=== PATIENT | male | born 1990 | race African-American/Black ===

== ENCOUNTER 2018-07-24 14:41 | Emergency (ER) | payer MEDICAID ==
[~2018-07-24] VITALS: Ht 182.9 cm; Wt 100.0 kg
[2018-07-24] MEDS ORDERED: KETOROLAC 30MG/ML VIAL IV STA (15:46)
[2018-07-24] MEDS ORDERED: SODIUM CHLORIDE 0.9% 1,000 ML IV ONE (15:46)
[2018-07-24] MEDS ORDERED: LEVETIRACETAM 1000MG/100ML 100 ML IV ONE (16:00)
[2018-07-24] MEDS ORDERED: LEVETIRACETAM 500MG TABLET PO ONE (17:15)
[2018-07-24] MEDS ORDERED: LEVETIRACETAM 500MG PREMIX 100 ML IV ONE (17:15)
[2018-07-24] MEDS ORDERED: IBUPROFEN 600MG TABLET PO ONE (17:45)
[2018-07-24 19:41] VITALS: BP 135/79
== END 2018-07-24 19:42 | disposition home or self-care (01) ==
LOC: EDBD 14:41 → ER 14:41
DX: R56.9 Unspecified convulsions (principal); I10 Essential (primary) hypertension
CPT/HCPCS: 96365; 96375; 99283; J1885; J1953; J7030

== ENCOUNTER 2018-10-14 11:13 | Emergency (ER) | payer MEDICAID ==
[~2018-10-14] VITALS: Ht 182.9 cm; Wt 100.0 kg
[2018-10-14] MEDS ORDERED: LORAZEPAM 2MG/ML CPJ ONE (14:01)
[2018-10-14] MEDS ORDERED: PHENYTOIN SODIUM EXTENDED 100MG CAPSULE PO ONE (15:00)
[2018-10-14] MEDS ORDERED: PHENYTOIN SODIUM 1,000 MG in SODIUM CHLORIDE 0.9% 100 ML IV ONE (15:15)
[2018-10-14] MEDS ORDERED: SODIUM CHLORIDE 0.9% 1,000 ML IV ONE (15:15)
[2018-10-14 16:58] LABS: BASOPHILS % 1.2 % (0.0-2.0); HEMATOCRIT. 40.6 % (42.0-52.0); HEMOGLOBIN. 13.2 g/dL (14.0-18.0); LYMPHOCYTES % 23.8 % (20.0-50.0); MEAN CORPUSCULAR HEMOGLOBIN 27.5 pg (28.0-32.0); MEAN CORPUSCULAR VOLUME 84.7 fL (80.0-94.0); MEAN PLATELET VOLUME 7.3 fl (7.4-10.4); MONOCYTES % 11.6 % (2.0-8.0); NEUTROPHILS % 62.4 % (40.0-76.0); PLATELET 394 x1000/uL (130-400); RED CELL DISTRIBUTION WIDTH 15.3 % (11.6-14.6)
[2018-10-14 17:03] LABS: CHLORIDE 107 mEq/L (98-107)
[2018-10-14 17:15] VITALS: BP 124/87
[2018-10-31 13:07] LABS: BARBITURATE SCREEN Negative ug/mL (Cutoff:0.1); BENZODIAZEPINE SCREEN Negative ng/mL (Cutoff:20); OPIATES SCREEN Negative ng/mL (Cutoff:5); PHENCYCLIDINE SCREEN Negative ng/mL (Cutoff:8)
== END 2018-10-14 17:45 | disposition home or self-care (01) ==
LOC: ER 11:13
DX: G40.909 Epilepsy, unspecified, not intractable, without status epilepticus (principal); E86.0 Dehydration; D64.9 Anemia, unspecified; D72.819 Decreased white blood cell count, unspecified; Z98.1 Arthrodesis status; Z91.14 Patient's other noncompliance with medication regimen
CPT/HCPCS: 36415; 71045; 80053; 80165; 80185; 80307; 82962; 85025; 93005; 96365; 96366; 99284; J1165; J2060; J7030; J7050; Z7610; 82542